=== PATIENT | female | born 1970 | race Caucasian/White ===

== ENCOUNTER 2017-02-18 03:07 | Emergency (ER) | payer SELFPAY ==
[2017-02-18 04:37] LABS: BASOPHIL % 0.6 % (0-2); PLATELET COUNT 309 x10^3mcL (130-400); RED CELL DISTRIBUTION WIDTH 13.8 % (11.5-14.5)
[2017-02-18 07:11] VITALS: BP 116/72
== END 2017-02-18 07:11 | disposition home or self-care (01) ==
LOC: ED 03:07
PROVIDERS: Emergency Medicine
DX: O03.9 Complete or unspecified spontaneous abortion without complication (principal)
CPT/HCPCS: 36415; Q0092

== ENCOUNTER 2017-03-01 20:37 | Emergency (ER) | payer SELFPAY ==
[~2017-03-01] VITALS: Ht 162.6 cm; Wt 80.7 kg
[2017-03-01 22:51] VITALS: BP 149/95
== END 2017-03-01 22:51 | disposition home or self-care (01) ==
LOC: ED 20:37
DX: G89.18 Other acute postprocedural pain (principal); R10.9 Unspecified abdominal pain; Z79.899 Other long term (current) drug therapy; Z98.890 Other specified postprocedural states

== ENCOUNTER 2019-05-18 08:32 | Emergency (ER) | payer SELFPAY ==
[~2019-05-18] VITALS: Ht 162.6 cm; Wt 79.8 kg
[2019-05-18 08:36] VITALS: Ht 162.6 cm; Wt 79.8 kg
[2019-05-18 10:34] LABS: PLATELET COUNT 331 x10^3mcL (130-400); RED CELL DISTRIBUTION WIDTH 13.8 % (11.5-14.5)
[2019-05-18 10:48] LABS: CALCIUM 8.2 mg/dL (8.5-10.1); CARBON DIOXIDE 27.9 mmol/L (21-32); CHLORIDE SERUM 103 mmol/L (98-107); CREATININE SERUM 0.8 mg/dL (0.6-1.0); GFR1 > 60 mL/min; GLUCOSE SERUM 98 mg/dL (74-106); SODIUM SERUM 139 mmol/L (136-145)
[2019-05-18 10:53] LABS: ALKALINE PHOSPHATASE 67 U/L (46-116); ALT/SGPT 18 U/L (14-59); AST/SGOT 11 U/L (15-37); BILIRUBIN TOTAL 0.29 mg/dL (0.20-1.00); TOTAL PROTEIN, SERUM 7.1 g/dL (6.4-8.2)
[2019-05-18 11:00] LABS: ALBUMIN 3.2 g/dL (3.4-5.0)
[2019-05-18 11:35] LABS: microscopic required? YES; urine erythrocyte TRACE (NEGATIVE)
[2019-05-18 12:30] VITALS: BP 108/61
== END 2019-05-18 12:30 | disposition home or self-care (01) ==
LOC: ED 08:32
PROVIDERS: Emergency Medicine
DX: R10.32 Left lower quadrant pain (principal); R14.0 Abdominal distension (gaseous)
CPT/HCPCS: 36415